=== PATIENT | male | born 1965 | race Caucasian/White ===

== ENCOUNTER 2018-07-17 20:02 | Observation (INO) | payer BC, OTHER ==
[~2018-07-17] VITALS: Ht 180.3 cm; Wt 206.9 kg
[~2018-07-17 20:02] MED LIST: ALLEGRA180 MG; ALLOPURINOL 10100 M1 PO; AMOXICILLIN875 MG; AURALGAN OTIC S14 ML OT; PRINIVIL20 MG PO; SIMVASTATIN40 MG PO
[2018-07-17 20:08] VITALS: BP 155/87
[2018-07-17] MEDS ORDERED: BENTYL 20 MG TA20 M1 PO (20:11)
[2018-07-17] MEDS ORDERED: HYDROCHLOROTH12.5 M1 PO (20:11)
[2018-07-17] MEDS ORDERED: OMEPRAZOLE40 MG PO (20:12)
[2018-07-17] MEDS ORDERED: LOPRESSOR50 PO (20:12)
[2018-07-17] MEDS ORDERED: REGLAN 10 MG TA10 MG PO (20:12)
[2018-07-17] MEDS ORDERED: GAS-X ULTRA ST180 MG PO (20:13)
[2018-07-17] MEDS ORDERED: SINGULAIR 10 MG10 MG PO (20:13)
[2018-07-17 20:30] LABS: ABSOLUTE BASOPHILS 0.1 thou/uL (0.0-0.2); ABSOLUTE EOSINOPHILS 0.2 thou/uL (0.0-0.7); ABSOLUTE LYMPHOCYTES 2.5 thou/uL (0.8-5.3); ABSOLUTE MONOCYTES 0.9 thou/uL (0.0-1.2); ABSOLUTE NEUTROPHILS 8.2 thou/uL (1.6-8.1); BASOPHILS 0.4 %; EOSINOPHILS 1.6 %; HEMOGLOBIN 13.7 gm/dL (14.0-18.0); LYMPHOCYTES 20.9 %; MCH 30.6 pg (26.0-34.0); MCHC 33.5 g/dL (28.0-37.0); MCV 91.4 fL (80.0-100.0); MONOCYTES 7.4 %; NUCLEATED RBCS 0 /100WBC; PLATELET COUNT* 287 thou/uL (150-400); POLYS 69.7 %; RBC 4.48 mil/uL (4.50-6.00); RDW-CV 14.3 % (10.5-14.5); WBC 11.8 thou/uL (4.0-11.0)
[2018-07-17 20:33] LABS: ANION GAP 6 mmol/L (7-16); BUN 17 mg/dL (7-18); CALCIUM 8.7 mg/dL (8.5-10.1); CHLORIDE 99 mmol/L (98-107); CO2 31 mmol/L (21-32); CREATININE 1.2 mg/dL (0.6-1.3); GLUCOSE 164 mg/dL (70-99); POTASSIUM 4.1 mmol/L (3.5-5.1); SODIUM 136 mmol/L (136-145)
[2018-07-17 20:40] LABS: ALBUMIN 3.4 g/dL (3.4-5.0); ALKALINE PHOSPHATASE 87 U/L (46-116); LIPASE 200 U/L (73-393); MAGNESIUM 1.7 mg/dL (1.8-2.4); SGOT 43 U/L (15-37); SGPT 67 U/L (30-65); TOTAL BILIRUBIN 0.3 mg/dL (<0.1-1.0); TOTAL PROTEIN 7.9 g/dL (6.4-8.2); TROPONIN-I LEVEL <0.06 ng/mL (<0.06)
[2018-07-17 22:45] VITALS: BP 117/53
[2018-07-17] MEDS ORDERED: METAMUCIL1 EAC1 PO (23:41)
[2018-07-18 04:00] VITALS: BP 123/69
--- NOTE | 2018-07-18 05:53 | NUR ---
RECEIVED REPORT AND ASSUMED CARE AT 2250. PT TRANSPORTED FROM ED TO ROOM 202. VSS, CARDIAC MONITORING IN PLACE. ASSESSMENT COMPLETED CHARTED. PT DENIES ANY CURRENT PAIN. PT ORIENTATED TO ROOM, FALL POLICY, CALL LIGHT. PT WEARING HOME CPAP AT [facility]. ALL QUESTIONS AND CONCERNS ADDRESSED AT THIS TIME. BED LOCKED IN LOWEST POSITION, CALL LIGHT WITHIN REACH. HOURLY ROUNDING COMPLETED AND ALL NEEDS MET. WILL CONTINUE TO MONITOR
[2018-07-18 08:24] VITALS: BP 141/67
[2018-07-18] MEDS ORDERED: ASPIR 8181 MG PO (08:50)
--- NOTE | 2018-07-18 09:49 | NUR ---
ASSUMED CARE OF PT THIS AM AROUND 0715- CONTACT LENS CUTTER IN PLACE ORDERED, TRACING SR- UPON ASSESSMENT PT NOTED TO BE RESTING IN BED, WATCHING TV- PT A&O X4- CONTINENT OF BOWEL AND BLADDER- UP AD-MARINA IN ROOM, STEADY GAIT NOTED- LCTA, RESP EVEN AND UN-LABORED AT REST- DYSPNEA NOTED ON EXERTION- VSS, O2 SAT 95% ON RA- ABDOMEN OBESE/ROUND/NON-TENDER, BS X 4 QUADS- PT REPORTS LAST BM 07/17/18- +1 PEDAL EDEMA NOTED- IV NOTED TO RUE INTACT AND SL- PT THELMA NPO FOR PLANNED DUBUTAMINE STRESS ECHO TEST- D/C PENDING RESULTS- PT DENIES ANY C/O PAIN/DISCOMFORT AT THIS TIME- CALL LIGHT AND PERSONAL BELONGINGS WITH IN REACH- HOURLY ROUNDS IN PLACE R/T SAFETY/NEEDS- ALL NEEDS MET AT THIS TIME-WCTM
[2018-07-18 11:33] VITALS: BP 126/65
[2018-07-18 11:50] VITALS: BP 126/65
--- NOTE | 2018-07-18 13:04 | EKG ---
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 : 1965 Requested By: Chato Graves Order Number: [id number] MD: Edgar Taveras Measurements Intervals [place] Rate: 91 P: -25 [place]: 162 QRS: 82 QRSD: 91 T: 1 QT: 348 QTc: 429 Interpretive Statements Sinus rhythm nonspecific st changes Low voltage, precordial leads Compared to ECG 12/09/2010 18:26:28 Low QRS voltage now present Electronically Signed On 07-18-2018 13:04:45 CDT by Edgar Taveras [email or web address] <ELECTRONICALLY SIGNED> By: Edgar Taveras MD, FAC 07/18/18 1304 05 05 Edgar Taveras MD, [facility] /EPI
--- NOTE | 2018-07-18 14:07 | NUR ---
Pt is A&O. Resides at home. Independent with ADLs, continues to work outside of the home. Pt has a home cpap. No hx of HH or SNF. Goal is to return home at dc. Possible dc today, leobardo [facility]. Following.
[2018-07-18 16:55] VITALS: BP 128/48
--- NOTE | 2018-07-18 17:02 | EXE ---
[place] [address] STRESS ECHOCARDIOGRAM Name: BRITNEY CHAVARRIA Room: [address]#: [id number] Admission: 07/17/18 Attend Phys: Dimitri Louis Discharge: Date of : 61 Date of Service: 07/18/18 1702 Report #: [id number] THIS REPORT FOR: //name// APPROVED REPORT Study performed: 07/18/2018 15:51:36 Exam: Dobutamine Stress Echo Indication: Chest pain Patient Location: In-Patient Stress Nurse: Ysabel Carr RN Room #: [facility] Supervising Physician: Edgar Taveras MD Ht: 5 ft 10 in HR: 78 bpm BP: 146/87 mmHg Medical History Cardiac Risk Factors: HTN, Hyperlipidemia, FHX of CAD Procedure The patient underwent a Pharmacological Stress Test using Dobutamine. Blood pressure, heart rate, and EKG were monitored. An Echocardiogram was performed by cathodic protection technician in four stages in quad fashion. At peak stress, four selected images were obtained and placed side by side with resting images for comparison. Echo Enhancing Agent Indication: Endocardial border delineation Agent(s) / Amount(s) Used: Optison 10 cc Stress Test Details Stress Test: Pharmacological Stress Test using Dobutamine. HR Resting HR: 78 bpm Max Heart Rate (APMHR): 165 bpm Max HR Achieved: 141 bpm Target HR (85% APMHR): 140 bpm % of APMHR: 85 Recovery HR: 94 bpm HR response to stress: Normal HR response to stress BP Resting BP: 146/87 mmHg Max BP: 156/86 mmHg Recovery BP: 110/70 [place] [address] STRESS ECHOCARDIOGRAM Name: BRITNEY CHAVARRIA Room: [address]#: [id number] Admission: 07/17/18 Attend Phys: Dimitri Louis Discharge: Date of : 61 Date of Service: 07/18/18 1702 Report #: [id number] ECG Resting ECG: Sinus Rhythm, nonspecific ST-T abnormalities Stress ECG: Sinus Rhythm, nonspecific ST-T abnormalities ST Change: Upsloping ST depression Maximum ST Deviation: 0.5 mm Arrhythmia: None Recovery ECG: Sinus Rhythm, nonspecific ST-T abnormalities Recovery ST Change: Horizontal ST depression Recovery ST Deviation: 0.5 mm Recovery Arrhythmia: None Pre-Stress Echo technically difficult to assess wall motion Post-Stress Echo technically difficult to asses wall motion changes Conclusion Clinical Response: Non-ischemic Stress ECG Response: Indeterminant Stress Echo Images: Indeterminant images were suboptimal to assess for ischemic changes Other Information Study Quality: Technically Limited Technically limited study due to body habitus. <Conclusion> images were suboptimal to assess for ischemic changes <ELECTRONICALLY SIGNED> By: Edgar Taveras MD, FACC 07/18/181701 01 01 Edgar Taveras MD, FACC /INF
--- NOTE | 2018-07-18 18:06 | NUR ---
PT CURRENTLY RESTING IN BED SIDE RECLINER- STOPPING BUILDER IN PLACE ORDERED, TRACING SR- STRESS DUBUTIME ECHO COMPLETED THIS SHIFT- RESULTS NOTED TO STATE THAT IMAGES WERE SUBOPTIMAL TO ASSESS FOR ISCHEMIC CHANGES- RESULTS REPORTED TO - WITH ORDERS RECIEVIED FOR PT TO STAY ANOTHER NIGHT AND CARDIOLOGY TO BE CONCULTED FOR FURTHER EVALUATION- PT HAS BEEN UPDATED ON PLAN AND OKAY TO STAY AT THIS POINT- DENIES ANY C/O PAIN/DISCOMFORT AT THIS TIME- ALL NEEDS MET AT THIS TIME- ABLE TO MAKE NEEDS KNOWN- ALL NEEDS MET AT THIS TIME-WCTM
[2018-07-18 20:04] VITALS: BP 120/68
[2018-07-19] VITALS: BP 123/57
--- NOTE | 2018-07-19 01:47 | NUR ---
RECEIVED REPORT AND ASSUMED CARE AT 1900. VSS. CARDIAC MONITORING IN PLACE. PT DENIES ANY COMPLAINTS OF PAIN. ASSESSMENT COMPLETED CHARTED. DISCUSSED PLAN OF CARE WITH PT, VERBALIZED UNDERSTANDING. PT TO BE NPO AFTER MIDNIGHT FOR CARDIOLOGY CONSULT. MEDICATION ADMIN PER EMAR. PT UP AD MARINA IN ROOM, ON RA. BED LOCKED IN LOWEST POSITION, CALL LIGHT WITHIN REACH. WILL CONTINUE TO MONITOR FOR REMAINDER OF THE SHIFT
[2018-07-19 04:00] VITALS: BP 120/65
--- NOTE | 2018-07-19 05:18 | NUR ---
BEGAN CARE OF PT AT APPROXIMATELY 0200 TODAY. PT IS ABLE TO COMMUNICATE HIS NEEDS TO STAFF EFFECTIVELY. HE HAS DENIED THE NEED FOR PAIN MEDICATION UP TO THIS TIME. PT WEARING OWN CPAP AT NIGHT WHILE SLEEPING UP TO THIS TIME. POSSIBLE DISCHARGE TODAY.
[2018-07-19 07:46] VITALS: BP 141/64
--- NOTE | 2018-07-19 10:22 | NUR ---
ASSUMED CARE OF PT AROUND 0730 THIS AM. REFER TO ASSESSMENT. PT HAS NO C/O PAIN THIS AM. DC HOME ORDERS OBTAINED. PT GIVEN DISCHARGE INSTRUCTIONS AND VERBALIZES UNDERSTANDING. PT TO F/U WITH PCP AND CARDIOLOGY. PT WAITING FOR RIDE AT THIS TIME. PT WILL DC PER W/C WITH NURSING STAFF. NO OTHER CONCERNS AT THIS TIME. CLWR. WCTM.
--- NOTE | 2018-07-19 10:49 | NUR ---
PT ABLE TO AMBULATE TO PRIVATE VEHICLE WITH BROTHER AND NURSING STAFF.
== END 2018-07-19 10:45 | disposition home or self-care (01) ==
LOC: M.ERS 20:02 → M.TBA-ER 21:51 → M.2W 21:51
PROVIDERS: Emergency Medicine Emergency Medical Services; ADMIT Internal Medicine
DX: R07.89 Other chest pain (principal); I10 Essential (primary) hypertension; E78.5 Hyperlipidemia, unspecified; K21.9 Gastro-esophageal reflux disease without esophagitis; I48.0 Paroxysmal atrial fibrillation; E66.01 Morbid (severe) obesity due to excess calories; M10.9 Gout, unspecified; E78.00 Pure hypercholesterolemia, unspecified; K58.9 Irritable bowel syndrome, unspecified; E83.42 Hypomagnesemia; Z68.44 Body mass index [BMI] 60.0-69.9, adult; Z82.49 Family history of ischemic heart disease and other diseases of the circulatory system

== ENCOUNTER → 2019-09-04 | Outpatient (CLI) | payer BC, OTHER ==
[~2019-09-04] MED LIST changes: +ASPIR 8181 MG PO; +BENTYL 20 MG TA20 M1 PO; +GAS-X ULTRA ST180 MG PO; +HYDROCHLOROTH12.5 M1 PO; +LOPRESSOR50 PO; +METAMUCIL1 EAC1 PO; +OMEPRAZOLE40 MG PO; +REGLAN 10 MG TA10 MG PO; +SINGULAIR 10 MG10 MG PO
--- NOTE | 2019-09-04 15:36 | 2DMMODE ---
[place] [address] 2 D/M-MODE ECHOCARDIOGRAM Name: BRITNEY CHAVARRIA Room: [facility]#: [id number] Admission: 09/04/19 Attend Phys: Jarrod Lucero, Discharge: Date of : 61 Date of Service: 09/04/19 1536 Report #: [id number] THIS REPORT FOR: //name// APPROVED REPORT Study performed: 09/04/2019 12:56:22 EXAM: Comprehensive 2D, Doppler, and color-flow Echocardiogram Patient Location: Out-Patient BSA: 2.94 HR: 69 bpm BP: 140/80 mmHg Other Information Study Quality: Technically Limited Technically limited study due to body habitus. Indications Dyspnea Echo Enhancing Agent Indication: Endocardial border delineation Agent(s) / Amount(s) Used: Optison 10 cc 2D Dimensions IVSd: 14.72 (7-11mm) LVOT Diam: 19.98 (18-24mm) LVDd: 44.69 mm PWd: 14.20 (7-11mm) Ascending Ao: 31.09 (22-36mm) LVDs: 31.79 (25-40mm) Aortic Root: 30.89 mm Pulmonary Valve PV Peak Dmitry.: 1.16 m/s PV Peak Gr.: 5.36 mmHg Tricuspid Valve TR Peak Gr.: 19.79 mmHg Left Ventricle The left ventricle is normal size. There is normal LV segmental wall motion. Borderline concentric left ventricular hypertrophy. Left ventricular systolic function is normal. The left ventricular ejection fraction is within the normal range. LVEF is 60-65%. [place] [address] 2 D/M-MODE ECHOCARDIOGRAM Name: AURABRITNEY CAMILLE Room: [facility]#: [id number] Admission: 09/04/19 Attend Phys: Jarrod Lucero, Discharge: Date of : 61 Date of Service: 09/04/19 1536 Report #: [id number] The right ventricle is normal size. Atria The left atrium size is normal. The right atrium size is normal. Aortic Valve The aortic valve is normal in structure. Mitral Valve The mitral valve is normal in structure. Great Vessels The aortic root is normal in size. <Conclusion> The left ventricle is normal size. Borderline concentric left ventricular hypertrophy. Left ventricular systolic function is normal. The left ventricular ejection fraction is within the normal range. LVEF is 60-65%. The right ventricle is normal size. The left atrium size is normal. The aortic valve is normal in structure. The mitral valve is normal in structure. There is normal LV segmental wall motion. <ELECTRONICALLY SIGNED> By: Carlos Brody MD, [facility] 09/04/19 1536 1536 153 Carlos Brody MD, [facility] /INF
== END ==
LOC: M.CRD 12:37
DX: I10 Essential (primary) hypertension (principal); R06.00 Dyspnea, unspecified

== ENCOUNTER 2020-06-09 20:17 | Emergency (ER) | payer BC ==
[~2020-06-09] VITALS: Ht 177.8 cm; Wt 208.7 kg
[2020-06-09 20:42] LABS: ABSOLUTE BASOPHILS 0.1 thou/uL (0.0-0.2); ABSOLUTE EOSINOPHILS 0.1 thou/uL (0.0-0.7); ABSOLUTE LYMPHOCYTES 2.2 thou/uL (0.8-5.3); ABSOLUTE MONOCYTES 0.6 thou/uL (0.0-1.2); ABSOLUTE NEUTROPHILS 8.5 thou/uL (1.6-8.1); BASOPHILS 0.5 %; EOSINOPHILS 1.1 %; HEMOGLOBIN 14.4 gm/dL (14.0-18.0); LYMPHOCYTES 19.4 %; MCH 31.2 pg (26.0-34.0); MCHC 34.3 g/dL (28.0-37.0); MCV 90.9 fL (80.0-100.0); MONOCYTES 5.4 %; MPV 6.4 fl. (7.2-11.1); NUCLEATED RBCS 0 /100WBC; PLATELET COUNT* 285 thou/uL (150-400); POLYS 73.6 %; RBC 4.62 mil/uL (4.50-6.00); RDW-CV 14.4 % (10.5-14.5); WBC 11.5 thou/uL (4.0-11.0)
[2020-06-09 20:56] LABS: CALCIUM 9.4 mg/dL (8.5-10.1); CREATININE 1.1 mg/dL (0.6-1.3); POTASSIUM 4.4 mmol/L (3.5-5.1)
[2020-06-09 20:58] LABS: INR 1.1; PROTIME 10.9 Seconds (9.20-11.50)
[2020-06-09 21:10] LABS: ALBUMIN 3.7 g/dL (3.4-5.0); CK-MB MASS 0.6 ng/mL (<0.5-3.6); MAGNESIUM 1.7 mg/dL (1.8-2.4); TOTAL BILIRUBIN 0.5 mg/dL (<0.1-1.0); TOTAL PROTEIN 8.7 g/dL (6.4-8.2)
[2020-06-09 21:40] VITALS: BP 137/44
--- NOTE | 2020-06-10 09:56 | EKG ---
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: : 1965 Requested By: Enoch Morin Order Number: [id number] MD: Edgar Taveras Measurements Intervals [place] Rate: 83 P: -17 [place]: 150 QRS: 89 QRSD: 106 T: 23 QT: 380 QTc: 447 Interpretive Statements Sinus rhythm Low voltage, precordial leads Baseline wander in lead(s) II,III,aVF Compared to ECG 07/17/2018 20:06:58 ST (T wave) deviation no longer present Electronically Signed On 06-10-2020 9:56:13 CDT by Edgar Taveras [email or web address] <ELECTRONICALLY SIGNED> By: Edgar Taveras MD, [facility] 06/10/20 0956 19 19 Edgar Taveras MD, [facility] /EPI
== END 2020-06-09 21:41 | disposition home or self-care (01) ==
LOC: M.ERS 20:17
PROVIDERS: Family Medicine
DX: R07.89 Other chest pain (principal); I48.91 Unspecified atrial fibrillation; K21.9 Gastro-esophageal reflux disease without esophagitis; I10 Essential (primary) hypertension; E78.00 Pure hypercholesterolemia, unspecified; K58.9 Irritable bowel syndrome, unspecified; E66.01 Morbid (severe) obesity due to excess calories; Z68.44 Body mass index [BMI] 60.0-69.9, adult